=== PATIENT | female | born 1980 | race African-American/Black ===

== ENCOUNTER 2022-01-11 07:04 | Inpatient (IN) | payer BC, OTHER ==
[2022-01-08 14:12] LABS: BASOPHILS # (AUTO) 0.1 (0.0-0.1); BASOPHILS % 0.6 % (0.0-1.0); EOSINOPHILS # (AUTO) 0.2 (0.0-0.4); EOSINOPHILS % 1.2 % (0.0-6.0); HEMATOCRIT 51.2 % (34.2-44.1); HEMOGLOBIN 16.5 g/dL (12.0-16.0); LYMPHOCYTES # (AUTO) 2.2 (1.0-3.2); LYMPHOCYTES % 14.6 % (18.0-39.1); MEAN CORPUSCULAR HEMOGLOBIN 28.6 pg (28-32); MEAN CORPUSCULAR HGB CONC 32.2 g/dL (31-35); MEAN CORPUSCULAR VOLUME 88.9 fL (81-99); MONOCYTES # (AUTO) 0.7 (0.2-0.8); MONOCYTES % 4.8 % (4.4-11.3); NEUTROPHILS # (AUTO) 11.5 (2.1-6.9); NEUTROPHILS % 78.2 % (38.7-80.0); PLATELET COUNT 309 x10e3/uL (140-360); RED BLOOD COUNT 5.76 x10e6/uL (3.6-5.1); RED CELL DISTRIBUTION WIDTH 13.6 % (11.7-14.4)
[2022-01-08 14:35] LABS: ANION GAP 18.7 mmol/L (8-16); CALCIUM 10.1 mg/dL (8.4-10.2); CREATININE, SERUM 0.89 mg/dL (0.57-1.11); POTASSIUM 3.7 mmol/L (3.5-5.1)
[~2022-01-11] VITALS: Ht 170.2 cm; Wt 207.3 kg
[~2022-01-11 07:04] MED LIST: CARVEDILOL12.5 MG PO; ELIQUIS5 MG PO; IRON; MEDROXYPROGESTER5 GM; MEDROXYPROGESTER5 MG PO; METOPROLOL TART25 MG PO; PROBIOTIC & AC1 EACH PO; TOPIRAMATE25 MG PO; TRIAMTERENE-HCTZ1 EA PO; VERAPAMIL ER120 MG PO; ZYRTEC10 M3; [UNRECOGNIZED DRUG - OTHER]
[2022-01-11] MEDS ORDERED: LEVOFLOXACIN 500MG/D5W 100ML 100 ML IV ONE (07:11)
[2022-01-11] MEDS ORDERED: BUPIVACAINE 0.25% 30ML SDV ONE (07:41)
[2022-01-11] MEDS ORDERED: HYDROCODONE/APAP 7.5MG-325MG 1 EA TAB PO PRN (09:00)
[2022-01-11] MEDS ORDERED: SODIUM CHLORIDE 0.9% 1000ML 1,000 ML IV SCH (09:00)
[2022-01-11] MEDS ORDERED: ONDANSETRON HCL INJ 2MG/ML 2ML 2 MG/ML VIAL IV PRN (09:00)
[2022-01-11] MEDS ORDERED: METOCLOPRAMIDE HCL 10 MG/2ML VIAL ONE (11:04)
[2022-01-11] MEDS ORDERED: PROMETHAZINE HCL (IM) 25 MG/ML VIAL IM ONE (11:04)
[2022-01-11] MEDS ORDERED: FENTANYL CITRATE/PF 100MCG/2 ML INJ ONE (12:09)
[2022-01-11 13:50] VITALS: BP 153/92
[2022-01-11] MEDS ORDERED: SCOPOLAMINE 1 MG PATCH TOP SCH (14:00)
[2022-01-11] MEDS: Morphine 2mg Syringe 2 MG/ML SYR IV PRN (15:02)
[2022-01-11] MEDS: ENOXAPARIN SOD INJ 40 MG/0.4 ML SYR SC SCH ×2 (15:42→20:19)
[2022-01-11 20:00] VITALS: BP 147/96
[2022-01-11] MEDS ORDERED: ENOXAPARIN SOD INJ 40 MG/0.4 ML SYR SC SCH (20:00)
[2022-01-12] VITALS: BP 147/86
[2022-01-12 04:00] VITALS: BP 140/82
[2022-01-12] MEDS: Morphine 2mg Syringe 2 MG/ML SYR IV PRN ×2 (05:24→09:07)
[2022-01-12 06:44] LABS: BASOPHILS # (AUTO) 0.1 (0.0-0.1); BASOPHILS % 0.3 % (0.0-1.0); HEMATOCRIT 49.9 % (34.2-44.1); HEMOGLOBIN 16.9 g/dL (12.0-16.0); LYMPHOCYTES # (AUTO) 1.1 (1.0-3.2); LYMPHOCYTES % 6.2 % (18.0-39.1); MEAN CORPUSCULAR HEMOGLOBIN 29.3 pg (28-32); MEAN CORPUSCULAR HGB CONC 33.9 g/dL (31-35); MEAN CORPUSCULAR VOLUME 86.6 fL (81-99); MONOCYTES # (AUTO) 0.8 (0.2-0.8); MONOCYTES % 4.6 % (4.4-11.3); NEUTROPHILS % 88.3 % (38.7-80.0); PLATELET COUNT 361 x10e3/uL (140-360); RED BLOOD COUNT 5.76 x10e6/uL (3.6-5.1); RED CELL DISTRIBUTION WIDTH 13.8 % (11.7-14.4)
[2022-01-12 07:27] LABS: CALCIUM 9.6 mg/dL (8.4-10.2); CREATININE, SERUM 1.06 mg/dL (0.57-1.11); PHOSPHORUS 3.9 MG/DL (2.3-4.7)
[2022-01-12 07:51] LABS: ALBUMIN 3.6 g/dL (3.5-5.0); ALBUMIN/GLOBULIN RATIO 0.7 (0.8-2.0)
[2022-01-12 08:20] VITALS: BP 140/82
[2022-01-12 08:51] VITALS: BP 146/99
[2022-01-12] MEDS: ENOXAPARIN SOD INJ 40 MG/0.4 ML SYR SC SCH (09:07)
[2022-01-12] MEDS ORDERED: CEPACOL SORE THROAT LOZENGES PO PRN (11:00)
== END 2022-01-12 11:15 | disposition home or self-care (01) | DRG 620 ==
LOC: OR 07:04 → PACU V 08:56 → MED/SURG2 13:29
PROVIDERS: ADMIT Internal Medicine; ATTEND Internal Medicine
PROC: 0DB64Z3 Excision of Stomach, Percutaneous Endoscopic Approach, Vertical (ICD-10-PCS; principal; 2022-01-11 08:59)
DX: E66.01 Morbid (severe) obesity due to excess calories (principal); Q60.0 Renal agenesis, unilateral; Z68.45 Body mass index [BMI] 70 or greater, adult; G47.33 Obstructive sleep apnea (adult) (pediatric); I89.0 Lymphedema, not elsewhere classified; I11.9 Hypertensive heart disease without heart failure; E78.5 Hyperlipidemia, unspecified; Z20.822 Contact with and (suspected) exposure to COVID-19; Z88.6 Allergy status to analgesic agent; Z88.0 Allergy status to penicillin; Z91.018 Allergy to other foods; Z79.899 Other long term (current) drug therapy; K76.0 Fatty (change of) liver, not elsewhere classified; Z86.711 Personal history of pulmonary embolism; Z79.01 Long term (current) use of anticoagulants; F41.9 Anxiety disorder, unspecified
CPT/HCPCS: 0223U; 36415; 80048; 80053; 81025; 83735; 84100; 85025; 94799; C1713; J1650; J1956; J2270; J2550; J2765; J3010